=== PATIENT | female | born 1985 | race Caucasian/White ===

== ENCOUNTER 2016-09-19 11:05 | Emergency (ER) | payer MEDICAID, OTHER ==
[~2016-09-19] VITALS: Ht 154.9 cm; Wt 75.0 kg
[2016-09-19 11:22] VITALS: Ht 154.9 cm; Wt 75.0 kg
--- NOTE | 2016-09-19 12:19 | ERD ---
ER Documentation Chief Complaint Date/Time DATE: 09/19/16 TIME: 12:16 Chief Complaint sent by clinic for US to R/O Etopic denies vB HPI This is a 31-year-old 1 para 0 female that presents to the emergency department for further evaluation after being seen just prior to arrival in outpatient clinic. The patient indicates for the past 3 weeks she has been experiencing suprapubic cramping and left lower pelvic pain. She denies any back pain. She has had no frequency urgency or dysuria. The patient has a history of polycystic ovarian disease and indicates she is very regular and her menstrual cycles. Her last menstrual cycle was May 26, 2016. She has been experiencing nausea in the morning but has not experienced any hemoptysis hematemesis or melanotic stools. She indicates that 3 days prior to arrival after urinating she noticed some spotting on the toilet paper. She has not had any further episodes of vaginal bleeding since that time. When she went to the clinic today she had a positive test. She indicates she sexually active with one partner being her and she has been trying to get for the past 2 years without success. She denies any shortness of breath at rest or exertion. She did state she took Advil for analgesic control several days ago with no improvement of her symptoms. ROS All systems reviewed and are negative except as per history of present illness. Medications Home Meds Active Scripts Cephalexin* (Keflex*) 500 Mg Capsule, 500 MG PO QID for 5 Days, CAP Prov:LIBRADO PETERSON 09/19/16 Allergies Allergies: Coded Allergies: No Known Allergy (Unverified , 09/19/16) PMhx/Soc History of Surgery: No Anesthesia Reaction: No Hx Neurological Disorder: No Hx Respiratory Disorders: No Hx Cardiac Disorders: No Hx Psychiatric Problems: No Hx Miscellaneous Medical Probl: Yes (Ovarian Cysts) Hx Alcohol Use: No Hx Substance Use: No Hx Tobacco Use: No Smoking Status: Never smoker Physical Exam Vitals Vital Signs Date Time Temp Pulse Resp B/P Pulse Ox O2 Delivery O2 Flow Rate FiO2 09/19/16 11:22 99.3 83 16 120/60 100 Physical Exam Constitutional:Well-developed. Well-nourished. HEENT:Normocephalic. Atraumatic.Pupils were equal round reactive to light. Dry mucous membranes.No tonsillar exudates. Neck: No nuchal rigidity. No lymphadenopathy. No posterior cervical spine tenderness or step-offs. Respiratory: Not using accessory muscles of respiration.Lungs were clear to auscultation bilaterally. No rhonchi. No rales. No wheezing. Cardiovascular: Regular rate regular rhythm.No murmurs. No rubs were appreciated.S1, S2 normal. Distal pulses are palpable 2+ bilaterally. GI: Abdomen was soft. Mild suprapubic tenderness. Non Distended. No pulsatile abdominal masses or bruits. No rebound. No guarding. Bowel sounds were present and normal. : Pelvic exam was performed by myself and the patient denied a female nurse railway signal electrician to be present. No gross blood present within the vaginal vault. No cervical motion tenderness or adnexal tenderness. No adnexal masses. Cervix was closed nonfriable with no endocervical discharge Muscle skeletal: Full range of motion of both the upper and lower extremities bilaterally.Normal muscle tone.No assymetrical calf tenderness or swelling. Skin: No petechia, no purpura. No lesions on the palms or the soles of the feet. No maculopapular rash. NEURO: Patient was alert, awake, orientated x3.No facial droop. Gait observed and normal with no ataxia.Speech had regular rate and rhythm. No focal neurological deficits. Result Diagram: 09/19/16 1215 09/19/16 1215 Results 24 hrs Laboratory Tests Test 09/19/16 12:15 09/19/16 12:25 White Blood Count 8.910^3/ul Red Blood Count 4.7510^6/ul Hemoglobin 12.9g/dl Hematocrit 39.5% Mean Corpuscular Volume 83.2fl Mean Corpuscular Hemoglobin 27.2pg Mean Corpuscular Hemoglobin Concent 32.7g/dl Red Cell Distribution Width 13.9% Platelet Count 88577^3/UL Mean Platelet Volume 9.4fl Neutrophils % 58.7% Lymphocytes % 31.2% Monocytes % 8.1% Eosinophils % 1.0% Basophils % 0.6% Nucleated Red Blood Cells % 0.0/100WBC Neutrophils # 5.210^3/ul Lymphocytes # 2.810^3/ul Monocytes # 0.710^3/ul Eosinophils # 0.110^3/ul Basophils # 0.110^3/ul Nucleated Red Blood Cells # 0.010^3/ul Prothrombin Time 13.0Sec Prothrombin Time Ratio 1.0 INR International Normalized Ratio 0.98 Activated Partial Thromboplast Time 26.8Sec Sodium Level 137mmol/L Potassium Level 3.5mmol/L Chloride Level 104mmol/L Carbon Dioxide Level 24mmol/L Anion Gap 13 Blood Urea Nitrogen 9mg/dl Creatinine 0.61mg/dl Glucose Level 87mg/dl Calcium Level 9.5mg/dl Total Bilirubin 0.2mg/dl Direct Bilirubin 0.00mg/dl Indirect Bilirubin 0.2mg/dl Aspartate Amino Transf (AST/SGOT) 23IU/L Alanine Aminotransferase (ALT/SGPT) 43IU/L Alkaline Phosphatase 45IU/L Total Protein 8.0g/dl Albumin 4.9g/dl Globulin 3.10g/dl Albumin/Globulin Ratio 1.58 Urine Color YELLOW Urine Clarity SLIGHTLY CLOUDY Urine pH 6.0 Urine Specific [place] 1.023 Urine Ketones NEGATIVEmg/dL Urine Nitrite NEGATIVEmg/dL Urine Bilirubin NEGATIVEmg/dL Urine Urobilinogen NEGATIVEmg/dL Urine Leukocyte Esterase 1+Shayy/ul Urine Microscopic RBC 2/HPF Urine Microscopic WBC 1/HPF Urine Squamous Epithelial Cells FEW/HPF Urine Bacteria FEW/HPF Urine Mucus FEW/HPF Urine Hemoglobin NEGATIVEmg/dL Urine Glucose NEGATIVEmg/dL Urine Total Protein NEGATIVEmg/dl Procedures/MDM This patient presented to the emergency department with abdominal cramping and new onset . IV access was established by nursing staff and she received a liter bolus of 0.9 normal saline at the patient mild clinical dehydration. The patient had a transvaginal ultrasound ordered reviewed by myself and the radiologist which indicated the following: Single live intrauterine consistent with a gestational age of 6 weeks , 4 days . The estimated date of delivery is 05/11/2017 . Nonvisualization of the left ovary. The patient had no evidence of ectopic . The patient did have mild pyuria with leukocytes positive on the urinalysis and therefore was discharged home with a prescription of Keflex The patient had no leukocytosis or signs of urinary tract infection. I explained to the patient she was at risk for threatened and will require reevaluation with repeat beta hCGs and 48 hours with an STEAM ROLLER OPERATOR. She did indicate she has an STEAM ROLLER OPERATOR that she can follow-up with to undergo care. She was also instructed to start to begin vitamins. The patient was discharged home in fair condition. They were instructed to return to the emergency department at any time if there was any worsening of their condition. The patient stated they would follow up with their PCP in the next 24 -48 hours to initiate a suitable medication regimen under the care of their PCP as well as to allow their PCP to monitor any drug reactions. The patient was discharged home with prescriptions after they gave informed consent to the new medication. They were also fully informed by myself on the adverse effects and adverse drug interactions in order to provide adequate safeguards to prevent possible adverse reactions to medications. Departure Diagnosis: Primary Impression: Threatened in first trimester Additional Impression: Urinary tract infection affecting Condition: LIBRADO Plasencia Sep 19, 2016 12:19
[2016-09-19 12:31] LABS: ADD SCAN DIFF NO
[2016-09-19 12:38] LABS: BASOPHIL # 0.1 10^3/ul (0.0-0.1); BASOPHILS % 0.6 % (0.0-2.0); EOSINOPHILS # 0.1 10^3/ul (0.0-0.5); HEMATOCRIT 39.5 % (37.0-47.0); HEMOGLOBIN 12.9 g/dl (12.0-16.0); LYMPHOCYTES # 2.8 10^3/ul (0.8-2.9); LYMPHOCYTES % 31.2 % (15.0-51.0); MEAN CORPUSCULAR HEMOGLOBIN 27.2 pg (29.0-33.0); MEAN CORPUSCULAR HGB CONC 32.7 g/dl (32.0-37.0); MEAN CORPUSCULAR VOLUME 83.2 fl (82.0-101.0); MEAN PLATELET VOLUME 9.4 fl (7.4-10.4); MONOCYTE # 0.7 10^3/ul (0.3-0.9); MONOCYTES % 8.1 % (0.0-11.0); NEUTROPHIL # 5.2 10^3/ul (1.6-7.5); NEUTROPHILS % 58.7 % (39.0-77.0); PLATELET COUNT 301 10^3/UL (140-415); RED BLOOD COUNT 4.75 10^6/ul (4.20-5.40); RED CELL DISTRIBUTION WIDTH 13.9 % (11.5-14.5); WHITE BLOOD COUNT 8.9 10^3/ul (4.8-10.8)
--- NOTE | 2016-09-19 12:58 | RADRPT ---
PROCEDURE: OBSTETRICAL ULTRASOUND WITH ENDOVAGINAL IMAGES CLINICAL INDICATION: Vaginal Bleed () TECHNIQUE: Multiple sonographic images of the pelvis were obtained utilizing a transabdominal and endovaginal technique. The images were reviewed on a PACS workstation. COMPARISON: None. FINDINGS: The uterus measures 9.3 x 4.8 x 6.3 cm. There is a single live intrauterine with heart rate of 121 beats per minute, mean sa c diameter of 1.44 cm, yolk sac, and crown-rump length of 0.77 cm which is consistent with a gestati onal age of 6 weeks, 4 days . The estimated date of delivery by ultrasound is 05/11/2017 . The right ovary measures 2.6 x 1.8 x 2.0 cm. The left ovary is not visualized. There is normal vascu lar flow in the right ovary. No significant ovarian lesions are seen. No significant pelvic free fluid is identified. IMPRESSION: Single live intrauterine consistent with a gestational age of 6 weeks, 4 days . The estimated date of delivery is 05/11/2017 . Nonvisualization of the left ovary. RPTAT: EE Physician Sandro Date Time Electronically viewed and signed by Physician Sandro on 09/19/2016 12:58 /
[2016-09-19 13:04] LABS: ALBUMIN 4.9 g/dl (3.3-4.9); ALBUMIN/GLOBULIN RATIO 1.58; BILIRUBIN,INDIRECT 0.2 mg/dl (0-1.1); BILIRUBIN,TOTAL 0.2 mg/dl (0.2-1.3); CALCIUM 9.5 mg/dl (8.4-10.2); CREATININE 0.61 mg/dl (0.44-1.00); POTASSIUM 3.5 mmol/L (3.5-5.1)
[2016-09-19 13:06] LABS: INR 0.98; PARTIAL THROMBOPLASTIN TIME 26.8 Sec (25.0-35.0)
[2016-09-19 13:52] LABS: ADD UMIC YES; UR ASCORBIC ACID 40 mg/dL (NEGATIVE); UR BACTERIA FEW /HPF (NONE SEEN); UR BILIRUBIN (Dip) NEGATIVE (NEGATIVE); UR BLOOD (Dip) NEGATIVE (NEGATIVE); UR CLARITY SLIGHTLY CLOUDY (CLEAR); UR COLOR YELLOW (YELLOW); UR GLUCOSE (Dip) NEGATIVE (NEGATIVE); UR KETONES (Dip) NEGATIVE (NEGATIVE); UR LEUKOCYTE ESTERASE (Dip) 1+ Leu/ul (NEGATIVE); UR MUCUS FEW /HPF (NONE SEEN); UR NITRITE (Dip) NEGATIVE (NEGATIVE); UR RBC 2 /HPF (0-5); UR SPECIFIC GRAVITY (Dip) 1.023 (1.003-1.030); UR SQUAMOUS EPITHELIAL CELL FEW /HPF (FEW); UR TOTAL PROTEIN (Dip) NEGATIVE (NEGATIVE); UR UROBILINOGEN (Dip) NEGATIVE (NEGATIVE)
[2016-09-19] MEDS ORDERED: CEPH-443 PO (14:42)
[2016-09-19 15:00] VITALS: BP 121/67; PULSE 77; RESP 20
== END 2016-09-19 15:00 | disposition home or self-care (01) ==
LOC: FTE 11:05
DX: O20.0 Threatened abortion (principal); O23.41 Unspecified infection of urinary tract in pregnancy, first trimester; Z3A.01 Less than 8 weeks gestation of pregnancy
CPT/HCPCS: 36415; 76801; 80053; 81001; 84702; 85025; 85610; 85730; 86900; 86901; Z7502

== ENCOUNTER 2017-01-01 05:45 | Emergency (ER) | payer MEDICAID ==
[~2017-01-01] VITALS: Ht 162.6 cm; Wt 77.5 kg
[~2017-01-01 05:45] MED LIST: ACET500C5 PO; CEPH-443 PO
[2017-01-01 05:51] VITALS: Ht 162.6 cm; Wt 77.5 kg
--- NOTE | 2017-01-01 06:51 | ERD ---
ER Documentation Chief Complaint Chief Complaint Cough anb SOB x3wks. Seen by PMD 5 days ago, no relief. see note HPI Otherwise healthy 31-year-old female who is 20 weeks presenting with a chief complaint of pleuritic left sided chest pain, left arm numbness, shortness of breath x4 days. Denies any abdominal pain, pelvic pain, change in quickening, fever, chills, back pain, dysuria, hematuria, vaginal discharge, bleeding. Has not taken any medications to relieve the symptoms. No similar symptoms in the past. Denies any previous medical conditions or daily medications. Worse with inspiration. Patient has no other complaints and describes no other associated manifestations. Nursing notes have been reviewed and are consistent with history given. ROS All systems reviewed and are negative except as per history of present illness. Medications Home Meds Active Scripts Azithromycin* (Zithromax*) 250 Mg Tablet, 250 MG PO .ZPACK DIRECTED, #6 TAB TAKE 500 MG (2 TABS) THE FIRST DAY THEN 250 MG (1 TAB) DAYS 2-5 Prov:BONITA KING PA-C 01/01/17 Cephalexin* (Keflex*) 500 Mg Capsule, 500 MG PO QID for 7 Days, CAP Prov:ISAC RAMOS PA-C 10/18/16 Acetaminophen* (Tylophen*) 500 Mg Capsule, 1 CAP PO Q6H Y for PAIN AND OR ELEVATED TEMP, #20 CAP Prov:ISAC RAMOS PA-C 10/18/16 Cephalexin* (Keflex*) 500 Mg Capsule, 500 MG PO QID for 5 Days, CAP Prov:LIBRADO PETERSON 09/19/16 Allergies Allergies: Coded Allergies: No Known Allergy (Unverified , 01/01/17) PMhx/Soc History of Surgery: No Anesthesia Reaction: No Hx Neurological Disorder: No Hx Respiratory Disorders: No Hx Cardiac Disorders: No Hx Psychiatric Problems: No Hx Miscellaneous Medical Probl: Yes (Ovarian Cysts) Hx Alcohol Use: No Hx Substance Use: No Hx Tobacco Use: No Smoking Status: Never smoker Physical Exam Vitals Physical Exam Const: NAD Head: Atraumatic Eyes: Normal Conjunctiva ENT: Normal External Ears, Nose and Mouth. Neck: Full range of motion..~ No meningismus. Resp: Clear to auscultation bilaterally Cardio: Regular rate and rhythm, no murmurs Abd: Soft, non tender, non distended. Normal bowel sounds Skin: No petechiae or rashes Back: No midline, CVA or flank tenderness Ext: No cyanosis, or edema Neur: Awake and alert Psych: Normal Mood and Affect Results 24 hrs Laboratory Tests Test 01/01/17 05:00 01/01/17 07:04 White Blood Count 10.110^3/ul Red Blood Count 4.4310^6/ul Hemoglobin 11.9g/dl Hematocrit 35.4% Mean Corpuscular Volume 79.9fl Mean Corpuscular Hemoglobin 26.9pg Mean Corpuscular Hemoglobin Concent 33.6g/dl Red Cell Distribution Width 14.4% Platelet Count 88488^3/UL Mean Platelet Volume 9.5fl Neutrophils % 58.1% Lymphocytes % 32.4% Monocytes % 7.6% Eosinophils % 1.1% Basophils % 0.2% Nucleated Red Blood Cells % 0.0/100WBC Neutrophils # 5.910^3/ul Lymphocytes # 3.310^3/ul Monocytes # 0.810^3/ul Eosinophils # 0.110^3/ul Basophils # 0.010^3/ul Nucleated Red Blood Cells # 0.010^3/ul Prothrombin Time 12.5Sec Prothrombin Time Ratio 1.0 INR International Normalized Ratio 0.93 Activated Partial Thromboplast Time 28.2Sec Sodium Level 141mmol/L Potassium Level 3.3mmol/L Chloride Level 107mmol/L Carbon Dioxide Level 23mmol/L Anion Gap 14 Blood Urea Nitrogen 7mg/dl Creatinine 0.50mg/dl Glucose Level 79mg/dl Calcium Level 8.9mg/dl Troponin I < 0.012ng/ml Bedside Glucose 77mg/dL Procedures/MDM 31-year-old female presenting with a chief complaint of pleuritic chest pain, sudden arm numbness, and shortness of breath 4 days.Labs were obtained and reveal the following: Potassium 3.3. Mild anemia. EKG was read by me as normal sinus rhythm, no ST elevations or depressions, no T -wave inversions, no axis deviation and good baseline. Chest x-ray revealed the following: Shallow lung inflation. Mild interstitial prominence. No definite acute disease. I have little suspicion for endangerment of the fetus, acute abdomen, ACS, pulmonary embolism. Most likely diagnosis is pneumonia. Case was presented to my attending who agrees with assessment and plan. Patient will be treated with antibiotics. I have spoke with the patient regarding their condition and future management. They have verbally responded that they understand their status and treatment plan. The patients vitals are stable, and their current condition is appropriate for discharge. The patient will be given discharge instructions with return precautions. Departure Diagnosis: Primary Impression: Shortness of breath Condition: Stable Additional Instructions: Follow up with your PCP and OBGYN within the next 1-3 days for a more thorough evaluation and a possible referral to a specialist. Return the the emergency department immediately if symptoms worsen or change. If you have any questions regarding medications, ask your pharmacist or us before you leave. If any adverse reactions occur while taking your medications, discontinue the treatment and return to the emergency department immediately. Take your medications as directed, and complete the entire course of treatment. BONITA KING PA-C Jan 01, 2017 06:51 evaluation and a possible referral to a specialist. Return the the emergency department immediately if symptoms worsen or change. If you have any questions regarding medications, ask your pharmacist or us before you leave. If any adverse reactions occur while taking your medications, discontinue the treatment and return to the emergency department immediately. Take your medications as directed, and complete the entire course of treatment. BONITA KING PA-C Jan 01, 2017 06:51
[2017-01-01 07:08] LABS: BASOPHILS % 0.2 % (0.0-2.0); EOSINOPHILS # 0.1 10^3/ul (0.0-0.5); EOSINOPHILS % 1.1 % (0.0-7.0); HEMATOCRIT 35.4 % (37.0-47.0); HEMOGLOBIN 11.9 g/dl (12.0-16.0); LYMPHOCYTES # 3.3 10^3/ul (0.8-2.9); LYMPHOCYTES % 32.4 % (15.0-51.0); MEAN CORPUSCULAR HEMOGLOBIN 26.9 pg (29.0-33.0); MEAN CORPUSCULAR HGB CONC 33.6 g/dl (32.0-37.0); MEAN CORPUSCULAR VOLUME 79.9 fl (82.0-101.0); MEAN PLATELET VOLUME 9.5 fl (7.4-10.4); MONOCYTE # 0.8 10^3/ul (0.3-0.9); MONOCYTES % 7.6 % (0.0-11.0); NEUTROPHIL # 5.9 10^3/ul (1.6-7.5); NEUTROPHILS % 58.1 % (39.0-77.0); PLATELET COUNT 265 10^3/UL (140-415); RED BLOOD COUNT 4.43 10^6/ul (4.20-5.40); RED CELL DISTRIBUTION WIDTH 14.4 % (11.5-14.5); WHITE BLOOD COUNT 10.1 10^3/ul (4.8-10.8)
[2017-01-01 07:26] LABS: INR 0.93; PROTIME 12.5 Sec (12.2-14.2)
[2017-01-01 07:27] LABS: PARTIAL THROMBOPLASTIN TIME 28.2 Sec (25.0-35.0)
[2017-01-01 07:33] LABS: ANION GAP 14 (8-16); BLOOD UREA NITROGEN 7 mg/dl (7-20); CALCIUM 8.9 mg/dl (8.4-10.2); CARBON DIOXIDE 23 mmol/L (21-31); CHLORIDE 107 mmol/L (97-110); GLUCOSE 79 mg/dl (70-220); POTASSIUM 3.3 mmol/L (3.5-5.1); SODIUM 141 mmol/L (135-144)
[2017-01-01 07:58] LABS: TROPONIN-I < 0.012 ng/ml (0.00-0.12)
--- NOTE | 2017-01-01 08:41 | RADRPT ---
PROCEDURE: XR Chest. CLINICAL INDICATION: Cough TECHNIQUE: Portable single view of the chest COMPARISON: None. FINDINGS: The heart size is top normal and accentuated by shallow lung inflation. Mild interstitial prominence of the lungs is seen but no definite acute infiltrate, pleural effusion, or overt congestive heart failure. No bony abnormality is seen. Slight bibasilar crowding. IMPRESSION: Shallow lung inflation. Mild interstitial prominence. No definite acute disease. RPTAT: HLBE Physician Bakari Date Time Electronically viewed and signed by Veronica Lanier Physician on 01/01/2017 07:17 LE/
[2017-01-01] MEDS ORDERED: AZIT250T94 PO (08:53)
[2017-01-01 09:00] VITALS: BP 112/69; PULSE 77; RESP 18; TEMP 98.2
== END 2017-01-01 09:00 | disposition home or self-care (01) ==
LOC: FTE 05:45
DX: O99.89 Other specified diseases and conditions complicating pregnancy, childbirth and the puerperium (principal); R06.02 Shortness of breath; Z3A.20 20 weeks gestation of pregnancy
CPT/HCPCS: 36415; 71010; 80048; 82962; 84484; 85025; 85610; 85730; 93005; Z7502

== ENCOUNTER 2017-01-01 09:25 | Outpatient (CLI) | payer MEDICAID ==
[~2017-01-01] VITALS: Ht 154.9 cm; Wt 77.2 kg
[~2017-01-01 09:25] MED LIST changes: +AZIT250T94 PO
[2017-01-01 09:39] VITALS: BP 114/68; PULSE 63; RESP 18
[2017-01-01 09:40] VITALS: Ht 154.9 cm; Wt 77.2 kg
--- NOTE | 2017-01-01 11:01 | CONS ---
Date/Time of Note Date/Time of Note DATE: 01/01/17 TIME: 10:50 Consultation Date/Type/Reason Admit Date/Time January 01, 2017 OB triage consult This patient is a 31 years old 1 para 0 with estimated date of confinement of May 11, 2016 which makes her today 21 weeks and 3 days. She came to the hospital complaining of shortness of breast. She was seen in emergency room and a diagnosis of pneumonia was made and she was placed on Zithromax and she was referred here in OB triage for evaluation of her condition and to take any other additional measure if necessary. On examination she is a well-developed well-nourished lady in mid trimester her ear nose throat appears to be normal neck is normal abdomen is soft. heart tone is normal. She does not have any contractions. Abdomen is soft bowel sounds are audible. No CVA. Constitutional: No chills, No diaphoresis, No disoriented, No febrile, No improved, No no complaints, No other, No poor po, No requiring IVF, No requiring O2 Eyes: No discharge, No no complaints, No other, No pain, No redness, No visual change ENT: No bleeding, No congestion, No discharge, No dysphagia, No no complaints, No other, No pain, No sore throat Respiratory: other, shortness of breath (.), No cough, No no complaints, No pain, No pleuritic pain, No sputum, No wheezing Cardiovascular: No chest pain, No edema, No lightheadedness, No no complaints, No orthopenea, No other, No palpitations, No paroxysmal nocturnal dyspnea Gastrointestinal: No blood, No constipation, No decreased appetite, No diarrhea , No flatus, No nausea, No no complaints, No other, No pain, No passing stool, No vomiting Genitourinary: other (Pelvic examination was not performed due to the fact that she did not have any contractions or vaginal bleeding), No bleeding, No discharge, No dysuria, No flank pain, No hematuria, No no complaints Musculoskeletal: No back pain, No bone/joint pain, No neck pain, No no complaints, No other, No restricted range of motion, No swelling Skin: No bruising, No erythema, No laceration, No no complaints, No other, No pruritis, No rash, No skin lesions Neurologic: other (Deep tendon reflexes normal), No confusion, No dizziness, No focal-weakness, No headache, No no complaints , No seizure, No syncope Endocrine: No dry skin, No no complaints, No other, No polydypsia, No polyuria , No temp intolerance Psychological: No anxiety, No confusion, No depression, No nl mood/affect, No no complaints, No other, No suicidal Additional Comments Her general vital signs were normal with blood pressure of 114/68 pulse rate of 63 respiration temperature 98.4 heart tone was a 136 bpm Disposition: Due to normal findings regarding her she was discharged home with instruction to rest at home and continue taking her antibiotic for for 4 days. Return to triage for any complication of such as abdominal pain vaginal bleeding or evidence of rupture membrane. End of dictation Social History Smoking Status: Never smoker Exam/Review of Systems Vital Signs Vitals Vital Signs Date Time Temp Pulse Resp B/P Pulse Ox O2 Delivery O2 Flow Rate FiO2 01/01/17 09:39 98.4 63 18 114/68 98 Room Air RUBY GUTIERREZ MD Jan 01, 2017 11:01
--- NOTE | 2017-01-01 11:27 | TRIAGE ---
OB Triage Datetime Report Generated by CPN: 01/01/2017 11:26 Datetime: 01/01/2017 09:33 Stage of : OB Triage Maternal Assessment Level of Consciousness: Fully Conscious DTR's/Clonus: DTRs 2+; No Clonus Headache: Denies Blurred Vision: No Respiratory Effort: Unlabored; Regular Rhythm; Equal Expansion Breath Sounds, Left: Clear and Equal Breath Sounds, Right: Clear and Equal Nausea/Vomiting: Denies RUQ Epigastric Pain: Denies Lower Extremities Edema: None Degree: None Upper Extremities Edema: None Degree: None Facial Edema: None Temperature Route: Oral Fall Risk Assessment History of Falling: (0) No Secondary Diagnosis: (0) No Ambulatory Aid: (0) Bedrest/Nurse Assist IV Therapy: (0) No Gait: (0) Normal/Bedrest/Immobile Mental Status: (0) Oriented to Own Ability Fall Score: 0 Fall Risk Score Definition: No Risk: No action required Labor Evaluation Monitor Mode: External Heart Rate FHR Baseline Rate: 130 Monitor Mode: External US Pain Assessment Pain Scale: 5 Pain Presence: Constant Pain Type: upper back Pain Relief Measures: Comfort Measures Datetime: 01/01/2017 09:30 Time of Arrival: 01/01/2017 09:30 EGA: 21.3 Arrived By: Ambulatory Arrived From: Emergency Dept Chief Complaint: ob evaluation post discharged from ER for SOB Movement: Present Contractions: Denies/Absent Rupture of Membranes: Denies Vaginal Bleeding: None Vaginal Discharge: Denies Recent Sexual Intercouse: Denies Abdominal Trauma: Not Applicable Patient Complaints: Shortness of Breath Time Provider Notified: 01/01/2017 10:15 Provider Notified: Dr Mayen Initial Plan: efm
== END 2017-01-01 11:24 | disposition home or self-care (01) ==
LOC: OBT 09:25 → L-D 09:25 → OBT 11:24
PROVIDERS: ATTEND Obstetrics & Gynecology
DX: O26.892 Other specified pregnancy related conditions, second trimester (principal); Z3A.21 21 weeks gestation of pregnancy; R06.02 Shortness of breath
CPT/HCPCS: G0463

== ENCOUNTER 2017-02-05 12:22 | Outpatient (CLI) | payer MEDICAID ==
[~2017-02-05] VITALS: Ht 154.9 cm; Wt 78.0 kg
[2017-02-05 12:30] VITALS: Ht 154.9 cm; Wt 78.0 kg
[2017-02-05 12:31] VITALS: BP 124/63; PULSE 76; RESP 76
[2017-02-05] MEDS ORDERED: PREN-93 PO (12:33)
--- NOTE | 2017-02-05 14:03 | RADRPT ---
PROCEDURE: Limited obstetric ultrasound CLINICAL INDICATION: Pain TECHNIQUE: Multiple transverse and longitudinal grayscale images of the pelvis were obtained pickett sabdominally and transvaginally.. COMPARISON: None FINDINGS: The cervix is closed with a length of 4.1 cm. There is a single viable intrauterine gestation. Cardiac activity is present with 139 beats per min [id number]. There is a breech presentation. The placenta is anterior. There is no evidence for an abruption or placenta previa. There is a normal amount of amniotic fluid with an JENNY = 12.2 cm. RPTAT: AA IMPRESSION: Cervix length measures 4.1 cm. .Prashanth Guzman MD, MD Date Time Electronically viewed and signed by .Prashanth Guzman MD, on 02/05/2017 14:03 .S/
[2017-02-05 14:44] LABS: ADD UMIC YES; UR AMORPHOUS CRYSTAL FEW /HPF (NONE SEEN); UR ASCORBIC ACID 20 mg/dL (NEGATIVE); UR BACTERIA FEW /HPF (NONE SEEN); UR BILIRUBIN (Dip) NEGATIVE (NEGATIVE); UR BLOOD (Dip) NEGATIVE (NEGATIVE); UR CLARITY CLOUDY (CLEAR); UR COLOR YELLOW (YELLOW); UR GLUCOSE (Dip) NEGATIVE (NEGATIVE); UR KETONES (Dip) NEGATIVE (NEGATIVE); UR LEUKOCYTE ESTERASE (Dip) 3+ Leu/ul (NEGATIVE); UR MUCUS FEW /HPF (NONE SEEN); UR NITRITE (Dip) NEGATIVE (NEGATIVE); UR NONSQUAMOUS EPITHELIAL CELL 1 /HPF (NONE SEEN); UR RBC 5 /HPF (0-5); UR SPECIFIC GRAVITY (Dip) 1.014 (1.003-1.030); UR SQUAMOUS EPITHELIAL CELL MODERATE /HPF (FEW); UR TOTAL PROTEIN (Dip) NEGATIVE (NEGATIVE); UR UROBILINOGEN (Dip) NEGATIVE (NEGATIVE)
[2017-02-05] MEDS ORDERED: NITR-58 PO (16:54)
--- NOTE | 2017-02-05 17:02 | CONS ---
Date/Time of Note Date/Time of Note DATE: 02/05/17 TIME: 16:51 Consultation Date/Type/Reason Admit Date/Time February 06, 2000 OB triage consult This patient is a 31 years old 1 para 0 with estimated date of confinement of May 11, 2016 which makes her 26 weeks and 3 days now. She came to OB triage complaining of slight back pain pelvic pressure and abdominal pain. On examination she is a well-developed well-nourished lady at midterm. .Her abdomen is soft no contractions heart tone is normal tracing is reactive. Reason for Consultation Laboratory Tests Test 02/05/17 13:50 Urine Color YELLOW Urine Clarity CLOUDY Urine pH 7.0 Urine Specific [place] 1.014 Urine Ketones NEGATIVEmg/dL Urine Nitrite NEGATIVEmg/dL Urine Bilirubin NEGATIVEmg/dL Urine Urobilinogen NEGATIVEmg/dL Urine Leukocyte Esterase 3+Shayy/ul Urine Microscopic RBC 5/HPF Urine Microscopic WBC 147/HPF Urine Squamous Epithelial Cells MODERATE/HPF Urine Amorphous Crystals FEW/HPF Urine Bacteria FEW/HPF Urine Mucus FEW/HPF Urine Hemoglobin NEGATIVEmg/dL Urine Glucose NEGATIVEmg/dL Urine Total Protein NEGATIVEmg/dl Constitutional: No chills, No diaphoresis, No disoriented, No febrile, No improved, No no complaints, No other, No poor po, No requiring IVF, No requiring O2 Eyes: No discharge, No no complaints, No other, No pain, No redness, No visual change ENT: No bleeding, No congestion, No discharge, No dysphagia, No no complaints, No other, No pain, No sore throat Respiratory: No cough, No no complaints, No other, No pain, No pleuritic pain, No shortness of breath, No sputum, No wheezing Cardiovascular: No chest pain, No edema, No lightheadedness, No no complaints, No orthopenea, No other, No palpitations, No paroxysmal nocturnal dyspnea Gastrointestinal: No blood, No constipation, No decreased appetite, No diarrhea , No flatus, No nausea, No no complaints, No other, No pain, No passing stool, No vomiting Genitourinary: No bleeding, No discharge, No dysuria, No flank pain, No hematuria, No no complaints, No other Musculoskeletal: No back pain, No bone/joint pain, No neck pain, No no complaints, No other, No restricted range of motion, No swelling Skin: No bruising, No erythema, No laceration, No no complaints, No other, No pruritis, No rash, No skin lesions Neurologic: No confusion, No dizziness, No focal-weakness, No headache, No no complaints, No other, No seizure, No syncope Endocrine: No dry skin, No no complaints, No other, No polydypsia, No polyuria , No temp intolerance Additional Comments . Laboratory study her urinalysis showed 3+ leukoesterase 147 WBC .Ultrasound study the report was single live viable intrauterine gestation in breech presentation The cervical length was 4.1 cm. In breech presentation Placenta was anterior. Amniotic fluid index was 12.27. 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 Social History Smoking Status: Never smoker Exam/Review of Systems Vital Signs Vitals Vital Signs Date Time Temp Pulse Resp B/P Pulse Ox O2 Delivery O2 Flow Rate FiO2 02/05/17 12:31 98.6 76 76 124/63 99 Room Air Results Results 24 hrs Laboratory Tests Test 02/05/17 13:50 Urine Color YELLOW Urine Clarity CLOUDY A Urine pH 7.0 Urine Specific [place] 1.014 Urine Ketones NEGATIVE Urine Nitrite NEGATIVE Urine Bilirubin NEGATIVE Urine Urobilinogen NEGATIVE Urine Leukocyte Esterase 3+ H Urine Microscopic RBC 5 Urine Microscopic WBC 147 H Urine Squamous Epithelial Cells MODERATE Urine Amorphous Crystals FEW A Urine Bacteria FEW A Urine Mucus FEW A Urine Hemoglobin NEGATIVE Urine Glucose NEGATIVE Urine Total Protein NEGATIVE RUBY GUTIERREZ MD Feb 05, 2017 17:02
--- NOTE | 2017-02-05 19:59 | TRIAGE ---
OB Triage Datetime Report Generated by CPN: 02/05/2017 19:58 Datetime: 02/05/2017 16:33 Maternal Assessment Level of Consciousness: Fully Conscious Headache: Denies Blurred Vision: No Nausea/Vomiting: Denies RUQ Epigastric Pain: Denies Facial Edema: None Labor Evaluation Frequency: 0 Monitor Mode: External Pattern: Normal: <= 5 Contractions in 10 Minutes Resting Tone [place]: Relaxed Heart Rate FHR Baseline Rate: 135 FHR Baseline Changes: No Baseline Change Variability: Moderate 6-25 bpm Accelerations: 15X15 Comments: FHTS NOT CONTINUOUSLY ON MONITOR DUE TO AGE AND MOVEMENT Pain Assessment Pain Scale: 0 Pain Presence: None/Denies Pain Type: N/A Pain Assessment Comments: PT REPORTS THAT SHE NO LONGER FEELS PAIN. Datetime: 02/05/2017 16:22 Monitor Mode: External Monitor Mode: External US Datetime: 02/05/2017 16:00 Labor Evaluation Frequency: 0 Monitor Mode: External Pattern: Normal: <= 5 Contractions in 10 Minutes Resting Tone [place]: Relaxed Heart Rate FHR Baseline Rate: 130 Monitor Mode: External US FHR Baseline Changes: No Baseline Change Variability: Minimal - Undetectable to <=5 bpm Accelerations: 15X15 Decelerations: None Datetime: 02/05/2017 14:56 Stage of : OB Triage Maternal Assessment Level of Consciousness: Fully Conscious DTR's/Clonus: DTRs 1+ Headache: Denies Breath Sounds, Left: Clear and Equal Breath Sounds, Right: Clear and Equal Nausea/Vomiting: Denies RUQ Epigastric Pain: Denies Labor Evaluation Frequency: NONE Monitor Mode: External Resting Tone [place]: Relaxed Heart Rate FHR Baseline Rate: 135 Monitor Mode: External US Variability: Moderate 6-25 bpm Accelerations: 15X15 Decelerations: None Category: Category I Pain Assessment Pain Scale: 7 Pain Presence: Constant Pain Type: Ache Pain Goal: 3 Vaginal Exam Membrane Status: Intact Datetime: 02/05/2017 14:33 Stage of : OB Triage Maternal Assessment Level of Consciousness: Fully Conscious DTR's/Clonus: DTRs 1+ Headache: Denies Breath Sounds, Left: Clear and Equal Breath Sounds, Right: Clear and Equal Nausea/Vomiting: Denies RUQ Epigastric Pain: Denies Labor Evaluation Frequency: NONE Monitor Mode: External Resting Tone [place]: Relaxed Heart Rate FHR Baseline Rate: 135 Monitor Mode: External US Variability: Moderate 6-25 bpm Accelerations: 15X15 Decelerations: None Category: Category I Pain Assessment Pain Scale: 7 Pain Presence: Constant Pain Type: Ache Pain Goal: 3 Vaginal Exam Membrane Status: Intact Datetime: 02/05/2017 13:41 Stage of : OB Triage Maternal Assessment Level of Consciousness: Fully Conscious DTR's/Clonus: DTRs 1+ Headache: Denies Breath Sounds, Left: Clear and Equal Breath Sounds, Right: Clear and Equal Nausea/Vomiting: Denies RUQ Epigastric Pain: Denies Labor Evaluation Frequency: NONE Monitor Mode: External Resting Tone [place]: Relaxed Heart Rate FHR Baseline Rate: 135 Monitor Mode: External US Variability: Moderate 6-25 bpm Accelerations: 15X15 Decelerations: None Pain Assessment Pain Scale: 7 Pain Presence: Constant Pain Type: Ache Pain Goal: 3 Vaginal Exam Membrane Status: Intact Datetime: 02/05/2017 13:05 Maternal Assessment Level of Consciousness: Fully Conscious DTR's/Clonus: DTRs 1+ Headache: Denies Blurred Vision: No Respiratory Effort: Unlabored Breath Sounds, Left: Clear and Equal Breath Sounds, Right: Clear and Equal Nausea/Vomiting: Denies RUQ Epigastric Pain: Denies Facial Edema: None Labor Evaluation Frequency: NONE Monitor Mode: External Resting Tone [place]: Relaxed Heart Rate FHR Baseline Rate: 135 Monitor Mode: External US Variability: Moderate 6-25 bpm Accelerations: 15X15 Decelerations: None Category: Category I Pain Assessment Pain Scale: 7 Pain Presence: Constant Pain Type: Ache Pain Goal: 3 Pain Assessment Comments: LOWER ABD PAIN Vaginal Exam Membrane Status: Intact Datetime: 02/05/2017 12:15 Time of Arrival: 02/05/2017 12:15 EGA: 26.3 Arrived By: Ambulatory Arrived From: Home Chief Complaint: PT CAME IN C/O LOWER ABDOMINAL PAIN AND BACK PAIN SINCE YESTERDAY WITH HX OF CIST IC OVARIAN SYNDROME. PT STATES + FM, DENIES ANY BLEEDING AT THIS TIME Movement: Present Contractions: Denies/Absent Rupture of Membranes: Denies Vaginal Discharge: Denies Recent Sexual Intercouse: Denies Abdominal Trauma: Not Applicable Additional Patient Complaints: NONE Initial Plan: NST AND BPP Datetime: 01/01/2017 10:28 Labor Evaluation Frequency: none Monitor Mode: External Resting Tone [place]: Relaxed Contraction Comments: pt denies feeling UCs Heart Rate FHR Baseline Rate: 130 Monitor Mode: External US FHR Baseline Changes: No Baseline Change Variability: Moderate 6-25 bpm Accelerations: 10X10 Decelerations: Variable Comments: appropriate for GA Datetime: 01/01/2017 09:33 Fall Risk Assessment Fall Score: 0 Fall Risk Score Definition: No Risk: No action required Datetime: 01/01/2017 09:30 EGA: 21.3
== END 2017-02-05 17:12 | disposition home or self-care (01) ==
LOC: OBT 12:22 → L-D 12:24 → OBT 17:12
PROVIDERS: ATTEND Obstetrics & Gynecology
DX: O26.892 Other specified pregnancy related conditions, second trimester (principal); Z3A.26 26 weeks gestation of pregnancy; R10.2 Pelvic and perineal pain
CPT/HCPCS: 76815; 76817; 81001; Z7500; 87086; G0463

== ENCOUNTER 2017-04-22 12:21 | Outpatient (CLI) | END 2017-04-22 14:24 | disposition home or self-care (01) ==

== ENCOUNTER 2017-04-30 10:35 | Inpatient (IN) | END 2017-05-03 13:50 | disposition home or self-care (01) | DRG 775 ==

== ENCOUNTER 2018-04-30 07:16 | Emergency (ER) | payer MEDICAID ==
[~2018-04-30] VITALS: Ht 154.9 cm; Wt 81.0 kg
[~2018-04-30 07:16] MED LIST changes: -ACET500C5 PO; +AZIT250T13 PO; -AZIT250T94 PO; -CEPH-443 PO; +IBUP-1542 PO; +OSEL75CA23 PO; +PREN-93 PO
[2018-04-30 07:20] VITALS: BP 152/78; RESP 18; Ht 154.9 cm; Wt 81.0 kg
--- NOTE | 2018-04-30 07:38 | ERD ---
ER Documentation Chief Complaint Chief Complaint pt is bib self with c/o sore throat, HPI 32-year-old female, presents the emergency department, complaining of 3 days with fever, headache, sore throat and general malaise. The pain is sharp, constant, worsened by swallowing solids. No respiratory distress, no cough. ROS All systems reviewed and are negative except as per history of present illness. Medications Home Meds Active Scripts Acetaminophen* (Tylenol*) 325 Mg Tablet, 2 TAB PO Q6 PRN for PAIN AND OR ELEVA SITA TEMP, #20 TAB Prov:ARELI DORADO MD 04/30/18 Ibuprofen* (Motrin*) 400 Mg Tab, 400 MG PO Q8, #20 TAB Prov:ARELI DORADO MD 04/30/18 Amoxicillin* (Amoxicillin*) 500 Mg Cap, 500 MG PO BID for 10 Days, CAP Prov:ARELI DORADO MD 04/30/18 Ibuprofen* (Ibuprofen*) 600 Mg Tablet, 600 MG PO Q6, #60 TAB 0 Refills Prov:FRANKIE CONDE MD 05/02/17 Reported Medications Oseltamivir Phosphate* (Tamiflu*) 75 Mg Capsule, 75 MG PO BID, CAP 04/30/17 Azithromycin* (Azithromycin*) 250 Mg Tablet, 250 MG PO DAILY, #4 TAB 04/30/17 Vit No.124/Iron/FA ( Vitamin Tablet) 1 Each Tablet, 1 EACH PO, TAB 02/05/17 Allergies Allergies: Coded Allergies: No Known Allergy (Unverified , 02/05/17) PMhx/Soc History of Surgery: No Anesthesia Reaction: No Hx Neurological Disorder: No Hx Respiratory Disorders: No Hx Cardiac Disorders: No Hx Psychiatric Problems: No Hx Miscellaneous Medical Probl: Yes (Ovarian Cysts) Hx Alcohol Use: No Hx Substance Use: No Hx Tobacco Use: No FmHx Family History: No diabetes, No coronary disease Physical Exam Vitals Vital Signs Date Temp Pulse Resp B/P (MAP) Pulse Ox O2 O2 Flow FiO2 Time Delivery Rate 04/30/18 101.5 112 18 152/78 98 07:20 (102) Physical Exam Const: Mild distress due to pain and fever Head: Atraumatic Eyes: Normal Conjunctiva ENT: Erythematous oropharynx, tonsils enlarged, with bilateral exudates, normal External Ears, Nose and Mouth. Neck: Full range of motion. Bilateral tender lymphadenopathies. No meningismus. Resp: Clear to auscultation bilaterally Cardio: Regular rate and rhythm, no murmurs Abd: Soft, non tender, non distended. Normal bowel sounds Skin: No petechiae or rashes Back: No midline or flank tenderness Ext: No cyanosis, or edema Neur: Awake and alert Psych: Normal Mood and Affect Results 24 hrs Current Medications Medications Dose Sig/Delmar Start Time Status Last (Trade) Ordered Route PRN Stop Time Admin Dose Reason Admin 650 mg ONCE ONCE 04/30/18 04/30/18 Acetaminophen PO 08:00 07:40 (Tylenol 04/30/18 08:01 Tab) Ibuprofen 600 mg ONCE ONCE 04/30/18 04/30/18 (Motrin) PO 08:00 07:41 04/30/18 08:01 Procedures/MDM Differential diagnosis include but not limited to: Tonsillar/pharyngeal infection bacterial/viral/fungal, parotitis, allergies, GERD. Less likely peritonsillar abscess, retropharyngeal abscess. No signs of upper respiratory obstruction Physical examination and clinical presentation consistent most likely with acute suppurative tonsillitis. Centor criteria 4/5. During the ED course the patient remained stable, fever resolved with medicatio ns given in the ER, no new complaints. Clinical impression discussed with the patient who agrees with management. The patient is stable to be treated outpatient and will be discharged home with a Rx for antibiotic and ibuprofen. Some side effects of prescribed medications (headache, rash, nausea, vomiting, diarrhea, drowsiness, habituation, bleeding, hypertension, interactions with other medications) were reviewed. The patient was instructed to follow up with the primary care provider in the next 48h. If symptoms persist, worsen or new symptoms develop, then patient should return to the ED immediately. Disclaimer: Inadvertent spelling and grammatical errors are likely due to EHR/dictation software use and do not reflect on the overall quality of patient care. Also, please note that the electronic time recorded on this note does not necessarily reflect the actual time of the patient encounter. Departure Diagnosis: Primary Impression: Acute suppurative tonsillitis Condition: Stable Additional Instructions: Thank you very much for allowing us to participate in your care. Your health and safety is our top priority at [facility]. Call your primary care doctor TOMORROW for an appointment during the next 2-4 days and bring all the information and medications prescribed. Have prescriptions filled and follow precisely the directions on the label. If the symptoms get worse and your provider is unavailable, return to the Emergency Department immediately. ARELI DORADO MD Apr 30, 2018 07:38
[2018-04-30] MEDS ORDERED: IBUP-1561 PO (07:41)
[2018-04-30] MEDS ORDERED: ACET325T33 PO (07:41)
[2018-04-30] MEDS ORDERED: AMOX500C2 PO (07:41)
[2018-04-30] MEDS ORDERED: IBUPROFEN 600 MG TAB PO ONE (08:00)
[2018-04-30] MEDS ORDERED: ACETAMINOPHEN 325 MG TAB PO ONE (08:00)
[2018-04-30 08:03] VITALS: PULSE 98
== END 2018-04-30 08:09 | disposition home or self-care (01) ==
LOC: FTE 07:16
DX: J03.90 Acute tonsillitis, unspecified (principal)
CPT/HCPCS: Z7502; Z7610; 99283